=== PATIENT | male | born 1955 | race Caucasian/White ===

== ENCOUNTER 2021-02-28 15:55 | Observation (INO) | payer BC ==
[2021-02-28] MEDS ORDERED: BABY ASPIRIN 81 MG CHEW PO ONE (16:14)
[2021-02-28] MEDS ORDERED: Sodium Chloride 0.9% 1000 ML 1,000 ML IV STA (16:14)
[2021-02-28] MEDS ORDERED: Sodium Chloride 0.9% 1000 ML 1,000 ML ONE (16:35)
[2021-02-28 17:09] LABS: Absolute Neutrophil Ct (ANC) 5.46 (1.4-6.9); Basophil (Absolute #) 0.02 (0-0.4); Eosinophil % 2.4 % (0.00-5.0); Eosinophil (Absolute #) 0.21 (0-0.5); Hematocrit 41.6 % (42-50); Hemoglobin 13.8 gm/dl (12.5-18.0); Lymphocyte (Absolute #) 2.06 (1.0-4.6); Lymphocytes % 23.9 % (24.0-44.0); Mean Cell Volume 85.6 fl (78-100); Mean Corpuscular Hemoglobin 28.4 pg (26-32); Mean Corpuscular Hgb Concent. 33.2 g/dl (32-36); Mean Platelet Volume 11.1 fl (7.5-11.0); Monocyte (Absolute #) 0.87 (0.0-1.3); Monocytes % 10.1 % (0.0-12.0); Neutrophil % 63.4 % (36.0-66.0); Platelet Count 215 K/mm3 (150-450); Red Blood Count 4.86 M/mm3 (4.1-5.6); Red Cell Distribution Width 12.9 % (11.5-14.0); White Blood Count 8.6 K/mm3 (4.0-10.5)
[2021-02-28 17:32] LABS: ALBUMIN 4.3 g/dL (3.5-5.0); ALKALINE PHOSPHATASE 77 U/L (38-126); ANION GAP 12.9 MEQ/L (5-15); BLOOD UREA NITROGEN 20 mg/dL (9-20); CHLORIDE 103 mmol/L (98-107); Calcium 9.4 mg/dL (8.4-10.2); Carbon Dioxide 29 mmol/L (22-30); Creatinine 1 1.24 mg/dL (0.66-1.25); EST GLOMERULAR FILTRATION RATE > 60.0 ML/MIN; Glucose 85 mg/dL (74-106); NT PRO BNP 80.9 pg/mL (0-900); Potassium 4.2 mmol/L (3.5-5.1); SGOT/AST 58 U/L (17-59); SGPT/ALT 15 U/L (0-50); SODIUM 140 mmol/L (137-145); Total Protein 7.3 g/dL (6.3-8.2)
--- NOTE | 2021-02-28 17:32 | ERPHSYRPT ---
- History of Present Illness Time Seen by Provider: 02/28/21 16:00 Source: patient Exam Limitations: no limitations Patient Subjective Stated Complaint: Pt states that he was cutting wood yesterday when he suddenly began having chest pain and when he quit it quit, today he was splitting wood and began to hurt again and when he quit it did not go all the way away, it took approx 30-45 min for it to stop hurting without any physical exertion, this has never happened before Triage Nursing Assessment: Pt was brought to the ER by his , [facility] wnl, denies pain at this time, bounding pulses, skin n/w/d, denies N&V, denies diaphoresis, no edema, doesn't appear to be in any distress Physician History: Location: chest pain Quality: sharp Radiation: none Severity: moderate Duration: since yesterday Timing: after execration Modifying factors/associated signs and symptoms: Worse with exertion. Patient having 2 episodes of chest pain since yesterday. Both episodes were associated with exertional chest pain. States he was chopping wood both times. Had sudden onset of chest tightness. He needed to sit down to relieve this. History of hypertension and high cholesterol. Timing/Duration: yesterday Allergies/Adverse Reactions: No Known Drug Allergies Allergy (Verified 02/28/21 16:11) Home Medications: Hydrochlorothiazide 25 mg [hydroDIURIL 25 MG] 25 mg PO DAILY 02/28/21 [History] Pravastatin Sodium 40 mg PO DAILY 02/28/21 [History] lisinopriL [Lisinopril] 40 mg PO DAILY 02/28/21 [History] Travel Risk - International Travel Have you traveled outside of the country in past 3 weeks: No - Coronavirus Screening Are you exhibiting any of the following symptoms?: No Close contact with a COVID-19 positive Pt in past 14-21 Days: No - Vaccine Status Have you recieved a Covid-19 vaccination: Yes 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[employer] - Vaccination Dates Date of 2cond Vaccination (if applicable): 05/2020 - Review of Systems Constitutional: No Fever, No Chills Eyes: No Symptoms Ears, Nose, & Throat: No Symptoms Respiratory: No Cough, No Dyspnea Cardiac: Chest Pain, No Edema, No Syncope Abdominal/Gastrointestinal: No Abdominal Pain, No Nausea, No Vomiting, No Diarrhea Genitourinary Symptoms: No Dysuria Musculoskeletal: No Back Pain, No Neck Pain Skin: No Rash Neurological: No Dizziness, No Focal Weakness, No Sensory Changes Psychological: No Symptoms Endocrine: No Symptoms All Other Systems: Reviewed and Negative - Past Medical History Pertinent Past Medical History: Yes Cardiac History: High Cholesterol, Hypertension - Past Surgical History Past Surgical History: No - Social History Smoking Status: Never smoker Exposure to second hand smoke: No Drug Use: none Patient Lives Alone: No - Nursing Vital Signs Nursing Vital Signs: Initial Vital Signs Temperature 96.8 F 02/28/21 15:56 Pulse Rate 91 H 02/28/21 15:56 Respiratory Rate 18 02/28/21 15:56 Blood Pressure 132/88 02/28/21 15:56 O2 Sat by Pulse Oximetry 97 02/28/21 15:56 Pain Scale Pain Intensity 0 - Physical Exam General Appearance: no apparent distress, alert Eye Exam: PERRL/EOMI, eyes nml inspection Ears, Nose, Throat Exam: normal ENT inspection, TMs normal, pharynx normal, moist mucous membranes Neck Exam: normal inspection, non-tender, supple, full range of motion Respiratory Exam: normal breath sounds, lungs clear, No respiratory distress Cardiovascular Exam: regular rate/rhythm, normal heart sounds, normal peripheral pulses Gastrointestinal/Abdomen Exam: soft, normal bowel sounds, No tenderness, No mass Back Exam: normal inspection, normal range of motion, No CVA tenderness, No vertebral tenderness Extremity Exam: normal inspection, normal range of motion, pelvis stable Neurologic Exam: alert, oriented x 3, cooperative, normal mood/affect, nml cerebellar function, nml station & gait, sensation nml, No motor deficits Skin Exam: normal color, warm, dry, No rash Lymphatic Exam: No adenopathy SpO2: 95 - Course Nursing assessment & vital signs reviewed: Yes EKG Interpreted by Me: Sinus Rhythm Ordered Tests: Active Orders 24 hr Category Date Time Status Care Specialist STAT Care 02/28/21 16:15 Active EKG-ER Only STAT Care 02/28/21 16:14 Active IV Insertion STAT Care 02/28/21 16:14 Active CHEST 1 VIEW (PORTABLE) Stat Exams 02/28/21 16:20 Completed CBC W DIFF Stat Lab 02/28/21 17:04 Completed CMP Stat Lab 02/28/21 17:04 Completed NT PRO BNP Stat Lab 02/28/21 17:04 Completed TROPONIN Q3H Lab 02/28/21 17:04 Completed TROPONIN Q3H Lab 02/28/21 19:15 Ordered TROPONIN Q3H Lab 02/28/21 22:15 Ordered TROPONIN Q3H Lab 03/01/21 01:15 Ordered TROPONIN Q3H Lab 03/01/21 04:15 Ordered Medication Summary Discontinued Medications Generic Name Dose Route Start Last Admin Trade Name Shahram PRN Reason Stop Dose Admin Aspirin 324 mg 02/28/21 16:14 02/28/21 16:38 Aspirin 81 Mg Tab.Chew PO 02/28/21 16:15 324 mg STAT ONE Administration Enoxaparin Sodium 110 mg 02/28/21 18:05 02/28/21 18:26 Enoxaparin Sodium 100 Mg/Ml Syringe 1 mg/kg (110 mg) 02/28/21 18:06 110 mg SQ Administration ONCE STA Enoxaparin Sodium Confirm 02/28/21 18:25 Enoxaparin Sodium 120 Mg/0.8 Ml Syringe Administered 02/28/21 18:26 Dose 120 mg SQ .STK-MED ONE Sodium Chloride 1,000 mls @ 999 mls/hr 02/28/21 16:14 02/28/21 17:49 Sodium Chloride 0.9% 1000 Ml IV 02/28/21 17:14 Infused .Q1H1M STA Infusion Sodium Chloride Confirm 02/28/21 16:35 Sodium Chloride 0.9% 1000 Ml Administered 02/28/21 16:36 Dose 1,000 mls @ ud .ROUTE .STK-MED ONE Lab/Rad Data: Laboratory Result Diagrams 02/28/21 17:04 02/28/21 17:04 Laboratory Results 02/28/21 02/28/21 02/28/21 Range/Units 17:04 17:04 17:04 WBC 8.6 (4.0-10.5) K/mm3 RBC 4.86 (4.1-5.6) M/mm3 Hgb 13.8 (12.5-18.0) gm/dl Hct 41.6 L (42-50) % MCV 85.6 (78-100) fl MCH 28.4 (26-32) pg MCHC 33.2 (32-36) g/dl RDW 12.9 (11.5-14.0) % Plt Count 215 (150-450) K/mm3 MPV 11.1 H (7.5-11.0) fl Gran % 63.4 (36.0-66.0) % Eos # (Auto) 0.21 (0-0.5) Absolute Lymphs (auto) 2.06 (1.0-4.6) Absolute Monos (auto) 0.87 (0.0-1.3) Lymphocytes % 23.9 L (24.0-44.0) % Monocytes % 10.1 (0.0-12.0) % Eosinophils % 2.4 (0.00-5.0) % Basophils % 0.2 (0.0-0.4) % Absolute Granulocytes 5.46 (1.4-6.9) Basophils # 0.02 (0-0.4) Sodium 140 (137-145) mmol/L Potassium 4.2 (3.5-5.1) mmol/L Chloride 103 (98-107) mmol/L Carbon Dioxide 29 (22-30) mmol/L Anion Gap 12.9 (5-15) MEQ/L BUN 20 (9-20) mg/dL Creatinine 1.24 (0.66-1.25) mg/dL Estimated GFR > 60.0 ML/MIN Glucose 85 (74-106) mg/dL Calcium 9.4 (8.4-10.2) mg/dL Total Bilirubin 0.50 (0.2-1.3) mg/dL AST 58 (17-59) U/L ALT 15 (0-50) U/L Alkaline Phosphatase 77 (38-126) U/L Troponin I 0.067 H* (0.000-0.034) ng/mL NT-Pro-B Natriuret Pep 80.9 (0-900) pg/mL Serum Total Protein 7.3 (6.3-8.2) g/dL Albumin 4.3 (3.5-5.0) g/dL - Progress Progress: improved Progress Note: 02/28/21 17:31 Patient here with high risk chest pain. Exertional chest pain after movement. We will do basic labs, troponin, chest x-ray. Patient most likely will need to be admitted for cardiac rule out. 02/28/21 18:32 Patient's troponin came back elevated at 0.067. We will give loading dose of Lovenox tonight. Patient having an NSTEMI. No EKG changes. [facility] Patient may potentially need a heart catheterization but absolutely needs cardiology consultation which we do not have here in [facility]. So far we have attempted to transfer patient to: [facility], [facility], [facility], [facility]. We will continue to try to find placement for patient. We also did try [facility]. Transfer of care to Dr. Britt at shift change at 7 PM. Patient will need a transfer to higher level of care [facility]. Plan to continue monitor her leaning closely in the emergency room until then. No active chest pain. Given aspirin and Lovenox. No EKG changes. 02/28/21 18:35 ED critical care statement As staff physician, I have provided critical care. Time: 45 mins Criteria for critical illness: NSTEMI, elevated trop Treatment and management provided include: Coordination of management with ETC care team, consultants, and inpatient care team. [id number] assessment of condition and response to therapy. Review and interpretation of emergent diagnostic testing. Medical chart review and completion. Direction and immediate supervision of the following therapy: Critical care was time spent personally by me on the following activities: blood draw for specimens, development of treatment plan with patient or surrogate, discussions with consultants, discussions with primary provider, interpretation of cardiac output measurements, evaluation of patient's response to treatment, examination of patient, obtaining history from patient or surrogate, ordering and performing treatments and interventions, ordering and review of laboratory studies, ordering and review of radiographic studies, pulse oximetry, re-evaluation of patient's condition and review of old charts. This time was independent of all procedures performed. Lalo Romero Counseled pt/family regarding: lab results, diagnosis, need for follow-up - Departure Departure Disposition: Transfer Clinical Impression: NSTEMI (non-ST elevated myocardial infarction), Chest pain on exertion Condition: Stable Critical Care Time: Yes Critical Care Time(excluding separately billable procedures): Critical 30-74 mins Referrals: WILNER ABARCA PA [Primary Care Provider] - Follow up/PCP as directed Instructions: Chest Pain (DC)
[2021-02-28] MEDS ORDERED: ENOXAPARIN SODIUM SQ STA (18:05)
[2021-02-28] MEDS ORDERED: ENOXAPARIN SODIUM SQ ONE (18:25)
--- NOTE | 2021-02-28 18:30 | XRAY ---
Indication: Chest pain. Comparison: None Portable apical lordotic chest slightly underinflated and clear with incidental left midlung calcified granuloma. Heart not enlarged. Descending aorta slightly tortuous. Bony thorax intact with mild degenerative changes. Impression: Nonacute underinflated chest with chronic features.
[2021-02-28 20:15] LABS: INFLUENZA A NEGATIVE (NEGATIVE); INFLUENZA B NEGATIVE (NEGATIVE); RESPIRATORY SYNCTIAL VIRUS NEGATIVE (Negative); SARS-CoV-2 Xpert Express NEGATIVE (NEGATIVE)
[2021-02-28] MEDS ORDERED: Zofran 4 MG/2 ML VIAL IV PRN (21:12)
[2021-02-28] MEDS ORDERED: TYLENOL 325 MG PO PRN (21:12)
[2021-02-28] MEDS: ENOXAPARIN SODIUM SQ SCH (22:48)
[2021-03-01] MEDS ORDERED: NORCO 5/325 MG PO PRN (00:20)
[2021-03-01 06:00] LABS: Absolute Neutrophil Ct (ANC) 4.05 (1.4-6.9); Basophil (Absolute #) 0.01 (0-0.4); Eosinophil % 2.5 % (0.00-5.0); Eosinophil (Absolute #) 0.17 (0-0.5); Hemoglobin 12.9 gm/dl (12.5-18.0); Lymphocyte (Absolute #) 1.97 (1.0-4.6); Lymphocytes % 28.7 % (24.0-44.0); Mean Cell Volume 86.3 fl (78-100); Mean Corpuscular Hemoglobin 28.5 pg (26-32); Mean Corpuscular Hgb Concent. 33.1 g/dl (32-36); Monocyte (Absolute #) 0.66 (0.0-1.3); Monocytes % 9.6 % (0.0-12.0); Neutrophil % 59.1 % (36.0-66.0); Platelet Count 180 K/mm3 (150-450); Red Blood Count 4.52 M/mm3 (4.1-5.6); Red Cell Distribution Width 12.8 % (11.5-14.0); White Blood Count 6.9 K/mm3 (4.0-10.5)
[2021-03-01 06:42] LABS: ALBUMIN 3.7 g/dL (3.5-5.0); ALKALINE PHOSPHATASE 63 U/L (38-126); ANION GAP 8.7 MEQ/L (5-15); BLOOD UREA NITROGEN 18 mg/dL (9-20); CHLORIDE 105 mmol/L (98-107); Carbon Dioxide 28 mmol/L (22-30); EST GLOMERULAR FILTRATION RATE > 60.0 ML/MIN; Glucose 95 mg/dL (74-106); NT PRO BNP 116 pg/mL (0-900); Potassium 3.8 mmol/L (3.5-5.1); SGOT/AST 53 U/L (17-59); SGPT/ALT 13 U/L (0-50); SODIUM 138 mmol/L (137-145); Total Protein 6.5 g/dL (6.3-8.2)
--- NOTE | 2021-03-01 08:45 | PCM.SSS ---
History of Present Illness - Chief Complaint Chief Complaint: nonstemi History of Present Illness: is a 65 year old male pt of [facility] in [place] with a PMHx HTN who was admitted through ER with NSTEMI. He had chest pain two days ago while splitting wood, but it resolved with rest, and he planned to f/u outpatient on monday. Then yesterday he again had chest pain with splitting wood (8), did not completely resolve with rest (3-410) and increased with resumed activity, so he came to ER. His troponin got up to 0.341 overnight, but the last one was down to 0.279. His EKG without ST elevation. The ER doctor attempted to send him to local hospitals without success, due to hospitals being full (pt is wait listed at [facility]). The ER even contacted hospitals in [place], [place], and [place] without success. Pt is aware of this. He apparently has a relative at [facility] who is checking into [facility] and bed availability today, so he may be able to transfer. If at [place], he would like to be under the care of Dr. Wall for cardiology. Pt's CP was L lower chest, radiating to the back. No SOB/diaphoresis/palpitations/nausea. Has no chest pain this morning. He has a strong FHx CAD; had a father with [place], one brother had CABG and two brothers had stents. Has never been a smoker or drinker of alcohol. He has been treated for HTN for about 10-12 years. On ROS, he had fatigue for the past 2-3 weeks. If pt can be transferred out today, will send him out and he should f/u with PCP 1 week after discharge to home. - Review of Systems Constitutional: Fatigue Cardiac: Chest Pain Musculoskeletal: Back Pain All Other Systems: Reviewed and Negative Medications & Allergies Home Medications: Home Medication List Hydrochlorothiazide 25 mg [hydroDIURIL 25 MG] 25 mg PO DAILY 02/28/21 [History Confirmed 02/28/21] Pravastatin Sodium 40 mg PO DAILY 02/28/21 [History Confirmed 02/28/21] lisinopriL [Lisinopril] 40 mg PO DAILY 02/28/21 [History Confirmed 02/28/21] Allergies/Adverse Reactions: Allergies Allergy/AdvReac Type Severity Reaction Status Date / Time No Known Drug Allergies Allergy Verified 02/28/21 16:11 - Past Medical History Past Medical History: Yes Neurological History: No Pertinent History ENT History: No Pertinent History Cardiac History: High Cholesterol, Hypertension Respiratory History: No Pertinent History Endocrine Medical History: No Pertinent History Musculoskelatal History: No Pertinent History GI Medical History: No Pertinent History History: No Pertinent History Pyscho-Social History: No Pertinent History Male Reproductive Disorders: No Pertinent History - Past Surgical History Past Surgical History: No Other Surgical History: elective surgery to fix double chin in 2014 - Social History Smoking Status: Never smoker Exposure to second hand smoke: No Alcohol: None Drug Use: none - Physical Exam Vital Signs: Vital Signs - 24 hr Temp Pulse Resp BP Pulse Ox 03/01/21 08:00 97.8 F 75 18 126/67 98 03/01/21 07:50 95 03/01/21 04:10 95 03/01/21 04:00 97.7 F 80 18 111/59 96 03/01/21 00:00 97.5 F 69 20 112/59 95 02/28/21 21:00 98.4 F 77 18 138/90 95 02/28/21 20:07 79 16 136/89 95 02/28/21 19:16 76 20 143/91 95 02/28/21 18:35 95 02/28/21 17:04 80 18 133/95 95 02/28/21 15:56 96.8 F 91 H 18 132/88 97 General Appearance: no apparent distress, alert Neurologic Exam: oriented x 3, cooperative Eye Exam: eyes nml inspection Ears, Nose, Throat Exam: moist mucous membranes Neck Exam: normal inspection, non-tender, No lymphadenopathy Respiratory Exam: normal breath sounds, lungs clear, No crackles/rales, No rhonchi, No wheezing Cardiovascular Exam: regular rate/rhythm, normal heart sounds, No murmur Gastrointestinal/Abdomen Exam: soft, normal bowel sounds, No tenderness, No distention, No mass, No guarding, No rebound Back Exam: normal inspection, No CVA tenderness, No rash Extremity Exam: normal inspection, No pedal edema, No swelling Skin Exam: normal color, warm, dry, No rash Results - Labs Lab/Micro Results: Lab Results-Last 24 Hours 02/28/21 02/28/21 02/28/21 Range/Units 17:04 17:04 17:04 WBC 8.6 (4.0-10.5) K/mm3 RBC 4.86 (4.1-5.6) M/mm3 Hgb 13.8 (12.5-18.0) gm/dl Hct 41.6 L (42-50) % MCV 85.6 (78-100) fl MCH 28.4 (26-32) pg MCHC 33.2 (32-36) g/dl RDW 12.9 (11.5-14.0) % Plt Count 215 (150-450) K/mm3 MPV 11.1 H (7.5-11.0) fl Gran % 63.4 (36.0-66.0) % Eos # (Auto) 0.21 (0-0.5) Absolute Lymphs (auto) 2.06 (1.0-4.6) Absolute Monos (auto) 0.87 (0.0-1.3) Lymphocytes % 23.9 L (24.0-44.0) % Monocytes % 10.1 (0.0-12.0) % Eosinophils % 2.4 (0.00-5.0) % Basophils % 0.2 (0.0-0.4) % Absolute Granulocytes 5.46 (1.4-6.9) Basophils # 0.02 (0-0.4) Sodium 140 (137-145) mmol/L Potassium 4.2 (3.5-5.1) mmol/L Chloride 103 (98-107) mmol/L Carbon Dioxide 29 (22-30) mmol/L Anion Gap 12.9 (5-15) MEQ/L BUN 20 (9-20) mg/dL Creatinine 1.24 (0.66-1.25) mg/dL Estimated GFR > 60.0 ML/MIN Glucose 85 (74-106) mg/dL Calcium 9.4 (8.4-10.2) mg/dL Total Bilirubin 0.50 (0.2-1.3) mg/dL AST 58 (17-59) U/L ALT 15 (0-50) U/L Alkaline Phosphatase 77 (38-126) U/L Troponin I 0.067 H* (0.000-0.034) ng/mL NT-Pro-B Natriuret Pep 80.9 (0-900) pg/mL Serum Total Protein 7.3 (6.3-8.2) g/dL Albumin 4.3 (3.5-5.0) g/dL Influenza Type A Ag (NEGATIVE) Influenza Type B Ag (NEGATIVE) RSV (PCR) (Negative) SARS-CoV-2 (PCR) (NEGATIVE) 02/28/21 02/28/21 02/28/21 Range/Units 19:23 19:37 22:28 WBC (4.0-10.5) K/mm3 RBC (4.1-5.6) M/mm3 Hgb (12.5-18.0) gm/dl Hct (42-50) % MCV (78-100) fl MCH (26-32) pg MCHC (32-36) g/dl RDW (11.5-14.0) % Plt Count (150-450) K/mm3 MPV (7.5-11.0) fl Gran % (36.0-66.0) % Eos # (Auto) (0-0.5) Absolute Lymphs (auto) (1.0-4.6) Absolute Monos (auto) (0.0-1.3) Lymphocytes % (24.0-44.0) % Monocytes % (0.0-12.0) % Eosinophils % (0.00-5.0) % Basophils % (0.0-0.4) % Absolute Granulocytes (1.4-6.9) Basophils # (0-0.4) Sodium (137-145) mmol/L Potassium (3.5-5.1) mmol/L Chloride (98-107) mmol/L Carbon Dioxide (22-30) mmol/L Anion Gap (5-15) MEQ/L BUN (9-20) mg/dL Creatinine (0.66-1.25) mg/dL Estimated GFR ML/MIN Glucose (74-106) mg/dL Calcium (8.4-10.2) mg/dL Total Bilirubin (0.2-1.3) mg/dL AST (17-59) U/L ALT (0-50) U/L Alkaline Phosphatase (38-126) U/L Troponin I 0.135 H* 0.245 H* (0.000-0.034) ng/mL NT-Pro-B Natriuret Pep (0-900) pg/mL Serum Total Protein (6.3-8.2) g/dL Albumin (3.5-5.0) g/dL Influenza Type A Ag NEGATIVE (NEGATIVE) Influenza Type B Ag NEGATIVE (NEGATIVE) RSV (PCR) NEGATIVE (Negative) SARS-CoV-2 (PCR) NEGATIVE (NEGATIVE) 03/01/21 03/01/21 03/01/21 Range/Units 02:01 05:37 05:37 WBC 6.9 (4.0-10.5) K/mm3 RBC 4.52 (4.1-5.6) M/mm3 Hgb 12.9 (12.5-18.0) gm/dl Hct 39.0 L (42-50) % MCV 86.3 (78-100) fl MCH 28.5 (26-32) pg MCHC 33.1 (32-36) g/dl RDW 12.8 (11.5-14.0) % Plt Count 180 (150-450) K/mm3 MPV 11.0 (7.5-11.0) fl Gran % 59.1 (36.0-66.0) % Eos # (Auto) 0.17 (0-0.5) Absolute Lymphs (auto) 1.97 (1.0-4.6) Absolute Monos (auto) 0.66 (0.0-1.3) Lymphocytes % 28.7 (24.0-44.0) % Monocytes % 9.6 (0.0-12.0) % Eosinophils % 2.5 (0.00-5.0) % Basophils % 0.1 (0.0-0.4) % Absolute Granulocytes 4.05 (1.4-6.9) Basophils # 0.01 (0-0.4) Sodium 138 (137-145) mmol/L Potassium 3.8 (3.5-5.1) mmol/L Chloride 105 (98-107) mmol/L Carbon Dioxide 28 (22-30) mmol/L Anion Gap 8.7 (5-15) MEQ/L BUN 18 (9-20) mg/dL Creatinine 1.10 (0.66-1.25) mg/dL Estimated GFR > 60.0 ML/MIN Glucose 95 (74-106) mg/dL Calcium 9.0 (8.4-10.2) mg/dL Total Bilirubin 0.40 (0.2-1.3) mg/dL AST 53 (17-59) U/L ALT 13 (0-50) U/L Alkaline Phosphatase 63 (38-126) U/L Troponin I 0.341 H* (0.000-0.034) ng/mL NT-Pro-B Natriuret Pep 116 (0-900) pg/mL Serum Total Protein 6.5 (6.3-8.2) g/dL Albumin 3.7 (3.5-5.0) g/dL Influenza Type A Ag (NEGATIVE) Influenza Type B Ag (NEGATIVE) RSV (PCR) (Negative) SARS-CoV-2 (PCR) (NEGATIVE) 03/01/21 Range/Units 05:37 WBC (4.0-10.5) K/mm3 RBC (4.1-5.6) M/mm3 Hgb (12.5-18.0) gm/dl Hct (42-50) % MCV (78-100) fl MCH (26-32) pg MCHC (32-36) g/dl RDW (11.5-14.0) % Plt Count (150-450) K/mm3 MPV (7.5-11.0) fl Gran % (36.0-66.0) % Eos # (Auto) (0-0.5) Absolute Lymphs (auto) (1.0-4.6) Absolute Monos (auto) (0.0-1.3) Lymphocytes % (24.0-44.0) % Monocytes % (0.0-12.0) % Eosinophils % (0.00-5.0) % Basophils % (0.0-0.4) % Absolute Granulocytes (1.4-6.9) Basophils # (0-0.4) Sodium (137-145) mmol/L Potassium (3.5-5.1) mmol/L Chloride (98-107) mmol/L Carbon Dioxide (22-30) mmol/L Anion Gap (5-15) MEQ/L BUN (9-20) mg/dL Creatinine (0.66-1.25) mg/dL Estimated GFR ML/MIN Glucose (74-106) mg/dL Calcium (8.4-10.2) mg/dL Total Bilirubin (0.2-1.3) mg/dL AST (17-59) U/L ALT (0-50) U/L Alkaline Phosphatase (38-126) U/L Troponin I 0.279 H* (0.000-0.034) ng/mL NT-Pro-B Natriuret Pep (0-900) pg/mL Serum Total Protein (6.3-8.2) g/dL Albumin (3.5-5.0) g/dL Influenza Type A Ag (NEGATIVE) Influenza Type B Ag (NEGATIVE) RSV (PCR) (Negative) SARS-CoV-2 (PCR) (NEGATIVE) - Radiology Impressions Radiology Exams & Impressions: Radiology Procedures Category Date Time Status CHEST 1 VIEW (PORTABLE) Stat Exams 02/28/21 16:20 Completed - Other Procedures and Tests Respiratory Therapy 03/01/21 03:55 Oxygen NASAL CANNULA 2 lpm Assessment/Plan (1) NSTEMI (non-ST elevated myocardial infarction) Current Visit: Yes Status: Acute Assessment & Plan: If he can transfer to [facility] today that would be optimal. Otherwise, cardiology consult today. He is currently not having pain and clinically looks fantastic. Troponins have started decreasing. Code(s): I21.4 - NON-ST ELEVATION (NSTEMI) MYOCARDIAL INFARCTION (2) HTN (hypertension) Current Visit: Yes Status: Chronic Qualifiers: Hypertension type: primary hypertension Qualified Code(s): I10 - Essential (primary) hypertension Code(s): I10 - ESSENTIAL (PRIMARY) HYPERTENSION Hospital Summary - Hospital Course Hospital Course: Pt is 65 yo male with HTN admitted with NSTEMI; unable to transfer to outside hospital last night due to hospitals all full in surrounding area and [facility]. He may be able to transfer to [facility] today. If not, would do tele-cardiology consult today with [facility] cardiology (pt desires Dr. Bennett) OR in-person cardiology consult with Dr. Baird. - Vitals & Intake/Output Vital Signs: Vital Signs Temperature 97.8 F 03/01/21 08:00 Pulse Rate 75 03/01/21 08:00 Respiratory Rate 18 03/01/21 08:00 Blood Pressure 126/67 03/01/21 08:00 O2 Sat by Pulse Oximetry 98 03/01/21 08:00 Intake & Output: Intake & Output 02/26/21 02/27/21 02/28/21 03/01/21 11:59 11:59 11:59 11:59 Intake Total 800 Output Total 665 Balance 135 Weight 108.6 kg - Lab Result Diagrams: 03/01/21 05:37 03/01/21 05:37 Lab Results-Last 24 Hrs: Lab Results-Last 24 Hours 02/28/21 02/28/21 02/28/21 Range/Units 17:04 17:04 17:04 WBC 8.6 (4.0-10.5) K/mm3 RBC 4.86 (4.1-5.6) M/mm3 Hgb 13.8 (12.5-18.0) gm/dl Hct 41.6 L (42-50) % MCV 85.6 (78-100) fl MCH 28.4 (26-32) pg MCHC 33.2 (32-36) g/dl RDW 12.9 (11.5-14.0) % Plt Count 215 (150-450) K/mm3 MPV 11.1 H (7.5-11.0) fl Gran % 63.4 (36.0-66.0) % Eos # (Auto) 0.21 (0-0.5) Absolute Lymphs (auto) 2.06 (1.0-4.6) Absolute Monos (auto) 0.87 (0.0-1.3) Lymphocytes % 23.9 L (24.0-44.0) % Monocytes % 10.1 (0.0-12.0) % Eosinophils % 2.4 (0.00-5.0) % Basophils % 0.2 (0.0-0.4) % Absolute Granulocytes 5.46 (1.4-6.9) Basophils # 0.02 (0-0.4) Sodium 140 (137-145) mmol/L Potassium 4.2 (3.5-5.1) mmol/L Chloride 103 (98-107) mmol/L Carbon Dioxide 29 (22-30) mmol/L Anion Gap 12.9 (5-15) MEQ/L BUN 20 (9-20) mg/dL Creatinine 1.24 (0.66-1.25) mg/dL Estimated GFR > 60.0 ML/MIN Glucose 85 (74-106) mg/dL Calcium 9.4 (8.4-10.2) mg/dL Total Bilirubin 0.50 (0.2-1.3) mg/dL AST 58 (17-59) U/L ALT 15 (0-50) U/L Alkaline Phosphatase 77 (38-126) U/L Troponin I 0.067 H* (0.000-0.034) ng/mL NT-Pro-B Natriuret Pep 80.9 (0-900) pg/mL Serum Total Protein 7.3 (6.3-8.2) g/dL Albumin 4.3 (3.5-5.0) g/dL Influenza Type A Ag (NEGATIVE) Influenza Type B Ag (NEGATIVE) RSV (PCR) (Negative) SARS-CoV-2 (PCR) (NEGATIVE) 02/28/21 02/28/21 02/28/21 Range/Units 19:23 19:37 22:28 WBC (4.0-10.5) K/mm3 RBC (4.1-5.6) M/mm3 Hgb (12.5-18.0) gm/dl Hct (42-50) % MCV (78-100) fl MCH (26-32) pg MCHC (32-36) g/dl RDW (11.5-14.0) % Plt Count (150-450) K/mm3 MPV (7.5-11.0) fl Gran % (36.0-66.0) % Eos # (Auto) (0-0.5) Absolute Lymphs (auto) (1.0-4.6) Absolute Monos (auto) (0.0-1.3) Lymphocytes % (24.0-44.0) % Monocytes % (0.0-12.0) % Eosinophils % (0.00-5.0) % Basophils % (0.0-0.4) % Absolute Granulocytes (1.4-6.9) Basophils # (0-0.4) Sodium (137-145) mmol/L Potassium (3.5-5.1) mmol/L Chloride (98-107) mmol/L Carbon Dioxide (22-30) mmol/L Anion Gap (5-15) MEQ/L BUN (9-20) mg/dL Creatinine (0.66-1.25) mg/dL Estimated GFR ML/MIN Glucose (74-106) mg/dL Calcium (8.4-10.2) mg/dL Total Bilirubin (0.2-1.3) mg/dL AST (17-59) U/L ALT (0-50) U/L Alkaline Phosphatase (38-126) U/L Troponin I 0.135 H* 0.245 H* (0.000-0.034) ng/mL NT-Pro-B Natriuret Pep (0-900) pg/mL Serum Total Protein (6.3-8.2) g/dL Albumin (3.5-5.0) g/dL Influenza Type A Ag NEGATIVE (NEGATIVE) Influenza Type B Ag NEGATIVE (NEGATIVE) RSV (PCR) NEGATIVE (Negative) SARS-CoV-2 (PCR) NEGATIVE (NEGATIVE) 03/01/21 03/01/21 03/01/21 Range/Units 02:01 05:37 05:37 WBC 6.9 (4.0-10.5) K/mm3 RBC 4.52 (4.1-5.6) M/mm3 Hgb 12.9 (12.5-18.0) gm/dl Hct 39.0 L (42-50) % MCV 86.3 (78-100) fl MCH 28.5 (26-32) pg MCHC 33.1 (32-36) g/dl RDW 12.8 (11.5-14.0) % Plt Count 180 (150-450) K/mm3 MPV 11.0 (7.5-11.0) fl Gran % 59.1 (36.0-66.0) % Eos # (Auto) 0.17 (0-0.5) Absolute Lymphs (auto) 1.97 (1.0-4.6) Absolute Monos (auto) 0.66 (0.0-1.3) Lymphocytes % 28.7 (24.0-44.0) % Monocytes % 9.6 (0.0-12.0) % Eosinophils % 2.5 (0.00-5.0) % Basophils % 0.1 (0.0-0.4) % Absolute Granulocytes 4.05 (1.4-6.9) Basophils # 0.01 (0-0.4) Sodium 138 (137-145) mmol/L Potassium 3.8 (3.5-5.1) mmol/L Chloride 105 (98-107) mmol/L Carbon Dioxide 28 (22-30) mmol/L Anion Gap 8.7 (5-15) MEQ/L BUN 18 (9-20) mg/dL Creatinine 1.10 (0.66-1.25) mg/dL Estimated GFR > 60.0 ML/MIN Glucose 95 (74-106) mg/dL Calcium 9.0 (8.4-10.2) mg/dL Total Bilirubin 0.40 (0.2-1.3) mg/dL AST 53 (17-59) U/L ALT 13 (0-50) U/L Alkaline Phosphatase 63 (38-126) U/L Troponin I 0.341 H* (0.000-0.034) ng/mL NT-Pro-B Natriuret Pep 116 (0-900) pg/mL Serum Total Protein 6.5 (6.3-8.2) g/dL Albumin 3.7 (3.5-5.0) g/dL Influenza Type A Ag (NEGATIVE) Influenza Type B Ag (NEGATIVE) RSV (PCR) (Negative) SARS-CoV-2 (PCR) (NEGATIVE) 03/01/21 Range/Units 05:37 WBC (4.0-10.5) K/mm3 RBC (4.1-5.6) M/mm3 Hgb (12.5-18.0) gm/dl Hct (42-50) % MCV (78-100) fl MCH (26-32) pg MCHC (32-36) g/dl RDW (11.5-14.0) % Plt Count (150-450) K/mm3 MPV (7.5-11.0) fl Gran % (36.0-66.0) % Eos # (Auto) (0-0.5) Absolute Lymphs (auto) (1.0-4.6) Absolute Monos (auto) (0.0-1.3) Lymphocytes % (24.0-44.0) % Monocytes % (0.0-12.0) % Eosinophils % (0.00-5.0) % Basophils % (0.0-0.4) % Absolute Granulocytes (1.4-6.9) Basophils # (0-0.4) Sodium (137-145) mmol/L Potassium (3.5-5.1) mmol/L Chloride (98-107) mmol/L Carbon Dioxide (22-30) mmol/L Anion Gap (5-15) MEQ/L BUN (9-20) mg/dL Creatinine (0.66-1.25) mg/dL Estimated GFR ML/MIN Glucose (74-106) mg/dL Calcium (8.4-10.2) mg/dL Total Bilirubin (0.2-1.3) mg/dL AST (17-59) U/L ALT (0-50) U/L Alkaline Phosphatase (38-126) U/L Troponin I 0.279 H* (0.000-0.034) ng/mL NT-Pro-B Natriuret Pep (0-900) pg/mL Serum Total Protein (6.3-8.2) g/dL Albumin (3.5-5.0) g/dL Influenza Type A Ag (NEGATIVE) Influenza Type B Ag (NEGATIVE) RSV (PCR) (Negative) SARS-CoV-2 (PCR) (NEGATIVE) - Radiology Exams Ordered Rad Exams-Entire Visit: Radiology Procedures Category Date Time Status CHEST 1 VIEW (PORTABLE) Stat Exams 02/28/21 16:20 Completed - Procedures and Test Procedures and Tests throughout Hospitalization: Therapy Orders & Screens 02/28/21 21:12 EKG REPEAT IN AM Comment: 03/01/21 03:55 Oxygen NASAL CANNULA 2 lpm Comment: Diagnosis: nonstemi - Discharge Disposition: Home, Self-Care Condition: Stable Prescriptions: No Action Hydrochlorothiazide 25 mg [hydroDIURIL 25 MG] 25 mg PO DAILY lisinopriL [Lisinopril] 40 mg PO DAILY Pravastatin Sodium 40 mg PO DAILY Follow up with: WILNER ABARCA PA [Primary Care Provider] -
[2021-03-01] MEDS: ENOXAPARIN SODIUM SQ SCH (09:44)
[2021-03-01] MEDS ORDERED: BABY ASPIRIN 81 MG CHEW PO SCH (10:00)
[2021-03-01] MEDS ORDERED: NON-FORMULARY ITEM (Pravastatin Sodium [Pravastatin Sodium] 40 MG Tablet) PO SCH (10:00)
[2021-03-01] MEDS ORDERED: Zestril 20 MG PO SCH (10:00)
[2021-03-01] MEDS ORDERED: ZOCOR 20MG PO SCH (10:00)
[2021-03-01] MEDS ORDERED: NON-FORMULARY ITEM (Lisinopril [Lisinopril] 40 MG Tablet) PO SCH (10:00)
[2021-03-01] MEDS ORDERED: hydroDIURIL 25 MG PO SCH (10:00)
[2021-03-01] MEDS ORDERED: Ecotrin 325 MG PO SCH (10:00)
[2021-03-01] MEDS ORDERED: PLAVIX 75 MG Tablet PO ONE (12:23)
[2021-03-01 19:25] VITALS: BP 136/88; PULSE 71; O2SAT 96
[2021-03-01] MEDS ORDERED: Nitrostat 0.4 MG Tablet SL PRN (19:54)
== END 2021-03-01 20:25 | disposition home or self-care (01) ==
LOC: ED 15:55 → MED SURG 20:52 → ED 21:00
PROVIDERS: ADMIT Family Medicine; ATTEND Family Medicine
DX: I21.4 Non-ST elevation (NSTEMI) myocardial infarction (principal); I10 Essential (primary) hypertension; E78.00 Pure hypercholesterolemia, unspecified; Z79.899 Other long term (current) drug therapy; Z20.828 Contact with and (suspected) exposure to other viral communicable diseases
CPT/HCPCS: 0241U; 36000; 36415; 71045; 80053; 83880; 84484; 85025; 93005; 93041; 94760; 96360; 96372; 99285; 99291; G0378; J1650; A9270-GY